=== PATIENT | male | born 1975 | race Hispanic/Latino ===

== ENCOUNTER 2018-09-02 05:27 | Emergency (ER) | payer OTHER | END 2018-09-02 06:00 | disposition home or self-care (01) | LOC: EDH 05:27 | DX: Z02.83 Encounter for blood-alcohol and blood-drug test (principal); Z72.0 Tobacco use ==

== ENCOUNTER 2019-07-03 05:00 | Emergency (ER) | payer OTHER | END 2019-07-03 05:09 | LOC: EDH 05:00 | DX: Z02.83 Encounter for blood-alcohol and blood-drug test (principal) ==